=== PATIENT | female | born 1995 | race Hispanic/Latino ===

== ENCOUNTER 2020-02-10 09:58 | Day surgery (SDC) | payer OTHER ==
[~2020-02-10] VITALS: Ht 154.9 cm; Wt 55.4 kg
[~2020-02-10 09:58] MED LIST: ADV100INH INH; BCP PO; LIDOCAINE 1% MDV 20ML VIAL SQ PRN; LR 1,000 ML IV ONE; METR1GEL4 TOP; PROAAER10 INH; ceFAZolin SOD 2 GM in IV 1 EA IV ONE
[2020-02-10] MEDS ORDERED: LIDOCAINE 2% INJ 100 MG/5 ML SDV (FOR ANES.) As Ordered ONE (12:59)
[2020-02-10] MEDS ORDERED: propofoL 200 MG/20 ML VIAL As Ordered ONE (12:59)
[2020-02-10] MEDS ORDERED: fentaNYL 100 MCG/2 ML INJECTION (J3010) As Ordered ONE (12:59)
[2020-02-10] MEDS ORDERED: MIDAZOLAM INJ 2 MG/2 ML VIAL (J2250) As Ordered ONE (12:59)
[2020-02-10] MEDS ORDERED: LIDOCAINE 1% MDV 20ML VIAL As Ordered ONE (13:10)
[2020-02-10] MEDS ORDERED: BUPIVACAINE HCL 0.5% 10 ML VIAL As Ordered ONE (13:11)
[2020-02-10] MEDS ORDERED: dexameTHASONE 4 MG/ML 1ML VIAL (J1100) As Ordered ONE ×2 (13:11→13:39)
[2020-02-10] MEDS ORDERED: ONDANSETRON 4MG/2ML VIAL (J2405) As Ordered ONE (13:39)
[2020-02-10] MEDS ORDERED: PHENYLephrine HCL 500 MCG/5 ML (100MCG/ML) SYRINGE (J2370) As Ordered ONE (14:14)
[2020-02-10] MEDS ORDERED: ACETAMINOPHEN 1000MG 100ML IV BTL (OFIRMEV) (J0131 PER 10MG) As Ordered ONE (14:25)
[2020-02-10] MEDS ORDERED: KETOROLAC 60 MG/2 ML VIAL (J1885) As Ordered ONE (14:32)
[2020-02-10] MEDS ORDERED: HYDROMORPHONE HCL 0.5 MG/ 0.5 ML SYRINGE (J1170 PER 1) As Ordered ONE (15:33)
[2020-02-10] MEDS: HYDROMORPHONE HCL 0.5 MG/ 0.5 ML SYRINGE (J1170 PER 1) IV PRN ×4 (15:35→15:50)
[2020-02-10] MEDS ORDERED: oxyCODONE 5MG TAB PO PRN (15:45)
[2020-02-10] MEDS ORDERED: LR 1,000 ML IV SCH (15:45)
[2020-02-10] MEDS ORDERED: ONDANSETRON 4MG/2ML VIAL (J2405) IV PRN (15:45)
[2020-02-10 17:10] VITALS: BP 107/60
--- NOTE | 2020-02-10 20:09 | RO ---
DATE OF PROCEDURE: 02/10/2020 PREPROCEDURE DIAGNOSIS: Right lateral ankle sprain with ATFL rupture. POSTPROCEDURE DIAGNOSIS: Right lateral ankle sprain with ATFL rupture. PROCEDURE: Right lateral ankle repair with internal brace. SURGEON: Mayekl Morgan DPM VEST BACKER: None. ANESTHESIA: General, LMA. Preoperative injection of 18 mL of 1:1 mixture of 1% lidocaine plain and 0.5% Marcaine plain. ESTIMATED BLOOD LOSS: Minimal. MATERIALS: Arthrex FiberTack suture anchor times two and Arthrex internal brace implant system, 3-0 Vicryl, 4-0 nylon. INJECTABLES: None. COMPLICATIONS: None. CONDITION: Stable. Kecia Gallardo is a 24-year-old female who had a right ankle sprain sustaining a rupture of her ATFL. She presents today for surgical correction. The patient, site and side were identified and marked in preoperative holding area. Consent was reviewed and obtained. All risks, complications and alternatives to the procedure were explained to the patient in detail and all questions were answered. DESCRIPTION OF PROCEDURE: The patient was brought to the operating room and placed on the operating room table in supine position. Monitored anesthesia care was delivered by the anesthesia team. Preoperative injection of 18 mL of 1:1 mixture of 1% Lidocaine plain and 0.5% Marcaine plain were injected into the right foot. The right foot was prepped and draped in the normal sterile fashion. Tourniquet was applied to her right thigh and inflated to 250 mmHg. A curvilinear incision was drawn over the lateral ankle and carried through with a #15 blade. Dissection was carried to the retinaculum of the lateral ankle. This was released. An incision was made along the capsular margin of the fibula. The ATFL was identified and noted to be ruptured. Following this the ATFL was repaired using two Arthrex 1.3 mm FiberTack suture anchors into the fibula and the Arthrex internal brace implant system was implanted from the talus and into the fibula. Improvement was noted in terms of stability. No further anterior drawer was noted postoperatively. Following this, retinaculum was used to augment the repair. Subcutaneous closure was performed with 3-0 Vicryl and skin closure with 4-0 nylon. Sterile dressings were applied and a posterior splint was applied. The patient was brought to the postanesthesia care unit (PACU), neurovascular status intact. She will be non weightbearing. She will followup in the office in 2 days.
== END 2020-02-10 17:34 | disposition home or self-care (01) ==
LOC: M SDC 09:58
PROVIDERS: ATTEND Podiatrist Foot & Ankle Surgery
DX: S93.491A Sprain of other ligament of right ankle, initial encounter (principal); X50.0XXA Overexertion from strenuous movement or load, initial encounter; Y92.138 Other place on military base as the place of occurrence of the external cause; Y99.0 Civilian activity done for income or pay; Y93.01 Activity, walking, marching and hiking
CPT/HCPCS: 27695; 81025; C1713; J0131; J0690; J1100; J1170; J1885; J2250; J2370; J2405; J3010

== ENCOUNTER 2020-08-18 06:47 | Emergency (ER) | payer OTHER ==
[~2020-08-18] VITALS: Ht 154.9 cm; Wt 53.8 kg
[~2020-08-18 06:47] MED LIST changes: -LIDOCAINE 1% MDV 20ML VIAL SQ PRN; -LR 1,000 ML IV ONE; -ceFAZolin SOD 2 GM in IV 1 EA IV ONE
[2020-08-18] MEDS ORDERED: SUMA25TA3 PO (06:52)
[2020-08-18] MEDS ORDERED: ACETAMINOPHEN 500 MG TAB PO ONE (07:15)
[2020-08-18] MEDS ORDERED: METOCLOPRAMIDE INJ 10MG/2ML VIAL (J2765 PER 1) IV ONE (07:15)
[2020-08-18] MEDS ORDERED: diphenhydrAMINE 50MG/ML VIAL (J1200) IV ONE (07:15)
[2020-08-18] MEDS ORDERED: NS 1,000 ML IV ONE (07:15)
[2020-08-18 08:01] LABS: BASO % 0.7 % (0.0-1.0); EOS # 0.2 10^3/uL (0.0-0.5); EOS % 2.7 % (0.0-3.0); HEMOGLOBIN 14.2 g/dl (12.0-15.5); LYMPH # 2.2 10^3/uL (1.5-5.0); LYMPH % 39.7 % (24.0-44.0); MEAN CORPUSCULAR HEMOGLOBIN 29.3 pg (27.0-33.0); MEAN CORPUSCULAR HGB CONC 33.8 g/dl (32.0-36.5); MEAN CORPUSCULAR VOLUME 86.8 fl (80.0-96.0); MONO # 0.3 10^3/uL (0.0-0.8); MONO % 5.9 % (0.0-5.0); NEUTROPHILS # 2.9 10^3/uL (1.5-8.5); NEUTROPHILS % 50.6 % (36.0-66.0); PLATELET COUNT, AUTOMATED 231 10^3/uL (150-450); RED BLOOD COUNT 4.84 10^6/uL (4.00-5.40); WHITE BLOOD COUNT 5.6 10^3/uL (4.0-10.0)
[2020-08-18 08:14] LABS: ALBUMIN 3.9 GM/DL (3.2-5.2); BILIRUBIN,DIRECT 0.1 MG/DL (0.0-0.2); BILIRUBIN,TOTAL 0.5 MG/DL (0.2-1.0); FREE T4 1.15 NG/DL (0.76-1.46); THYROID STIMULATING HORMONE 1.6 uIU/ML (0.358-3.740); TOTAL PROTEIN 7.3 GM/DL (6.4-8.2)
--- NOTE | 2020-08-18 08:14 | REPVR ---
PROCEDURE INFORMATION: Exam: CT Head Without Contrast Exam date and time: 08/18/2020 7:14 AM Age: 24 years old Clinical indication: Pain; Headache; Additional info: Never had migraine, feels like head is going to explode TECHNIQUE: Imaging protocol: Computed tomography of the head without contrast. Radiation optimization: All CT scans at this facility use at least one of these dose optimization techniques: automated exposure control; mA and/or kV adjustment per patient size (includes targeted exams where dose is matched to clinical indication); or iterative reconstruction. COMPARISON: No relevant prior studies available. FINDINGS: Brain: Normal. No hemorrhage. Unremarkable white matter. No mass effect. Cerebral ventricles: No ventriculomegaly. Bones/joints: Unremarkable. No acute fracture. Paranasal sinuses: Visualized sinuses are unremarkable. No fluid levels. Mastoid air cells: Visualized mastoid air cells are well aerated. Soft tissues: Unremarkable. IMPRESSION: No acute intracranial abnormality. Electronically signed by: Miryam Zarate On 08/18/2020 08:14:19 AM
[2020-08-18 08:49] VITALS: BP 114/64
== END 2020-08-18 08:51 | disposition home or self-care (01) ==
LOC: M ED 06:47
DX: G43.909 Migraine, unspecified, not intractable, without status migrainosus (principal); J45.909 Unspecified asthma, uncomplicated; Z79.51 Long term (current) use of inhaled steroids
CPT/HCPCS: 70450; 80047; 80076; 84439; 84443; 84702; 85025; 96361; 96374; 99284; J1200; J2765